=== PATIENT | male | born 1935 | race Caucasian/White ===

== ENCOUNTER 2023-04-25 14:38 | Emergency (ER) | payer MEDICARE, SELFPAY ==
[2023-04-25 14:55] VITALS: BP 152/69; PULSE 79; RESP 16; TEMP 36.7; O2SAT 97; BMI 23.5
[2023-04-25 17:04] LABS: Add Manual Diff / Slide Review NO; Basophils Absolute Auto 0 /uL (0-100); Basophils Percent Auto 0.6 % (0-2); Eosinophils Absolute Auto 100 /uL (0-450); Eosinophils Percent Auto 1.8 % (2-4); Hematocrit 40.7 % (41-53); Lymphocytes Absolute Auto 1900 /uL (1100-4500); Lymphocytes Percent Auto 25.7 % (25-40); Mean Corpuscular HGB Conc 34.3 % (30-36); Mean Corpuscular Hemoglobin 31.4 PG (26-34); Mean Corpuscular Volume 91.6 fL (80-100); Monocytes Absolute Auto 900 /uL (0-900); Monocytes Percent Auto 11.8 % (3-14); Neutrophils Absolute Auto 4400 /uL (1500-7000); Neutrophils Percent Auto 60.1 % (50-75); Platelet Count 194 X10^3/uL (150-400); Red Blood Cell Count 4.44 X10^6/uL (4.5-5.9); Red Cell Distribution Width 13.5 % (11.6-14.8); White Blood Cell Count 7.3 X10^3/uL (4.5-11.0)
[2023-04-25 17:09] LABS: Alanine Aminotransferase 29 IU/L (<50); Albumin 4.1 g/dL (3.5-5.0); Albumin Globulin Ratio 1.2 (1.0-2.8); Alkaline Phosphatase 62 U/L (38-126); Aspartate Aminotransferase 29 IU/L (17-59); BUN Creatinine Ratio 25.6 (6-22); Bilirubin Total 0.3 mg/dL (0.2-1.3); Blood Urea Nitrogen 22 mg/dL (9-20); Calcium 8.5 mg/dL (8.4-10.2); Carbon Dioxide 24 mmol/L (22-32); Chloride 103 mmol/L (98-107); Estimated Glomerular Filt Rate > 60 mL/min (>60); Globulin 3.3 g/dL (1.7-4.1); Glucose 79 mg/dL (80-110); HEMOLYSIS 28 (0-50); Lactate (Lactic Acid) 0.8 mmol/L (0.7-2.1); Potassium 3.9 mmol/L (3.4-5.1); Sodium 135 mmol/L (137-145); Total Protein 7.4 g/dL (6.3-8.2)
--- NOTE | 2023-04-25 17:35 | ED_ITS ---
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 He was airlifted to [facility] where he was sutured and admitted to observation. He said he got IV antibiotics and discharged next day. He was not discharged on any antibiotics they said that he did not need them. They have been changing t he dressings daily however last night started to notice some redness. This morning looked worse. He is able to ambulate without any significant pain. He says it looks a little bit puffy here. He is chilled in the emergency department but is afebrile and denies any sweats. Related Data Home Medications Medication Instructions Recorded Confirmed IBUPROFEN (#MOTRIN / ADVIL) 200 mg PO Q DAY PRN ##0 04/29/11 Previous Rx's Medication Instructions Recorded albuterol sulfate 90 mcg/actuation 0 puff INH PRN PRN #1 puff 02/02/17 aerosol inhaler (Ventolin HFA) beclomethasone dipropionate 80 0 INH BID #3 inhalations 02/02/17 mcg/actuation aerosol inhaler (Qvar) amoxicillin 875 mg-potassium 1 tab PO BID #20 tabs 04/25/23 clavulanate 125 mg tablet Review of Systems Review of Systems ROS Unobtainable: All systems reviewed & are unremarkable except as noted in HPI and below Exam Initial Vital Signs Initial Vital Signs: Vital Signs Temperature 98.0 F 04/25/23 14:55 Pulse Rate 79 04/25/23 14:55 Respiratory Rate 16 04/25/23 14:55 Blood Pressure 152/69 H 04/25/23 14:55 Pulse Oximetry 97 04/25/23 14:55 Oxygen Delivery Method Room Air 04/25/23 14:55 GENERAL: Alert pleasant 88-year-old male appears much younger than 88 years old CARDIOVASCULAR: peripheral pulses in tact, cap refill <2 sec RESPIRATORY: No respiratory distress, speaks in full sentences without difficulty EXTREMITIES: Normal range of motion, no clubbing or edema. Neurovascularly intact NEUROLOGICAL: Cranial nerves II through XII grossly intact. Normal gait and speech. SKIN: Left thigh laceration incision looks good. L-shaped with some hematoma minimal erythema mild fluctuation but no induration no significant swelling not significantly tender to touch. No streaking Course Orders Ordered: ED Orders 04/25/23 16:43 CBC Auto Diff [Complete Blood Count AUTO DIFF] Stat CMP [Comprehensive Metabolic Panel] Stat Lactate (Lactic Acid) Stat 04/25/23 17:30 Blood Culture Stat Discontinued Medications Amoxicillin/Clavulanate Potassium (Amoxicillin/Clav 875/125 Mg) 1 tab PO NOW ONE Stop: 04/25/23 18:01 Last Admin: 04/25/23 18:08 Dose: 1 tab Documented By: ESPINOZA Cefazolin Sodium/Dextrose (Ancef) 100 mls @ 200 mls/hr IV NOW ONE Stop: 04/25/23 18:16 Last Infusion: 04/25/23 18:37 Dose: 0 mls/hr Documented By: Admin: 04/25/23 18:05 Dose: 200 mls/hr Documented By: ESPINOZA Vital Signs Vital signs: Vital Signs - 8 hr 04/25/23 14:55 04/25/23 18:18 04/25/23 18:16 Temperature 98.0 F Pulse Rate 79 80 81 Respiratory Rate 16 16 18 Blood Pressure 152/69 H 175/84 H 175/84 H Pulse Oximetry 97 99 97 Oxygen Delivery Method Room Air Room Air MDM - Wound/Laceration Lab Data 04/25/23 16:43 04/25/23 16:43 Labs: Lab Results 04/25/23 04/25/23 04/25/23 Range/Units 16:43 16:43 16:43 WBC 7.3 (4.5-11.0) X10^3/uL RBC 4.44 L (4.5-5.9) X10^6/uL Hgb 14.0 (13.5-17.5) g/dL Hct 40.7 L (41-53) % MCV 91.6 (80-100) fL MCH 31.4 (26-34) PG MCHC 34.3 (30-36) % RDW 13.5 (11.6-14.8) % Plt Count 194 (150-400) X10^3/uL Neut % (Auto) 60.1 (50-75) % Lymph % (Auto) 25.7 (25-40) % [place] % (Auto) 11.8 (3-14) % Eos % (Auto) 1.8 L (2-4) % Baso % (Auto) 0.6 (0-2) % Neut # (Auto) 4400 (5430-5510) /uL Lymph # (Auto) 1900 (4613-0913) /uL [place] # (Auto) 900 (0-900) /uL Eos # (Auto) 100 (0-450) /uL Baso # (Auto) 0 (0-100) /uL Sodium 135 L (137-145) mmol/L Potassium 3.9 (3.4-5.1) mmol/L Chloride 103 (98-107) mmol/L Carbon Dioxide 24 (22-32) mmol/L BUN 22 H (9-20) mg/dL Creatinine 0.86 (0.66-1.25) mg/dL Estimated GFR > 60 (>60) mL/min BUN/Creatinine Ratio 25.6 H (6-22) Glucose 79 L (80-110) mg/dL Lactate 0.8 (0.7-2.1) mmol/L Calcium 8.5 (8.4-10.2) mg/dL Total Bilirubin 0.3 (0.2-1.3) mg/dL AST 29 (17-59) IU/L ALT 29 (<50) IU/L Alkaline Phosphatase 62 (38-126) U/L Total Protein 7.4 (6.3-8.2) g/dL Albumin 4.1 (3.5-5.0) g/dL Globulin 3.3 (1.7-4.1) g/dL Albumin/Globulin Ratio 1.2 (1.0-2.8) [facility] Narrative Medical decision making narrative: Patient 88-year-old male with laceration from bull presents today with increasing redness. Does not have fever no leukocytosis no evidence of severe sepsis. At this time I think mild cellulitis. So overall very soft without significant induration or actual drainage I do not think abscess at this time. Pain is not out of proportion. I see no need for imaging. I have low suspicion for necrotizing fasciitis, or deep tissue infection. He is given 1 dose of Ancef and Augmentin in the emergency department. Discharge Plan Departure Patient Disposition: Home Clinical Impression: Cellulitis Instructions: Cellulitis Activity Restrictions/Additional Instructions: *You have been diagnosed with cellulitis *What to do: At this time you do need antibiotics. Please monitor very closely for worsening redness. The antibiotics should take about 3 days *Continue to take medications as directed Augmentin androgen 875 mg twice a day for 7 days --> SENT TO [facility] *Follow up with your primary care provider in 2-3 days or call [phone] *Return to ER if you should have increasing redness pain inability to walk or any new, worsening or concerning symptoms Prescriptions: New amoxicillin-pot clavulanate 875-125 mg tablet 1 tab PO BID Qty: 20 0RF No Action IBUPROFEN (#MOTRIN / ADVIL) 200 mg PO Q DAY PRN Qty: 0 Qvar 80 MCG/PUFF aerosol 0 INH BID Qty: 3 3RF albuterol sulfate [Ventolin HFA] 90 MCG/PUFF HFA aerosol inhaler 0 puff INH PRN PRNQty: 1 0RF Referrals: Josette Quintana MD [Primary Care Provider] - Stand Alone Forms: Patient Portal/API
[2023-04-25] MEDS: CEFAZOLIN 2 GM/100 ML PREMIX 100 ML IV (18:05)
[2023-04-25] MEDS: AMOXICILLIN/CLAV 875/125 MG 1 TAB PO (18:08)
[2023-04-25 18:16] VITALS: BP 175/84; PULSE 81; RESP 18; O2SAT 97
[2023-04-25 18:18] VITALS: BP 175/84; PULSE 80; RESP 16; O2SAT 99
== END 2023-04-25 18:37 | disposition home or self-care (01) ==
PROVIDERS: Emergency Provider Emergency Medicine; Family Provider Family Medicine; PCP Family Medicine
DX: L03.116 Cellulitis of left lower limb (principal)
CPT/HCPCS: 36415; 80053; 83605; 85025; 87040; 96365; 99284; J0690

== ENCOUNTER → 2023-07-09 07:26 | Outpatient (CLI) | payer MEDICARE, SELFPAY ==
--- NOTE | 2023-07-09 | DI.MRI.S_ITS ---
PROCEDURE: MR CERVICAL SPINE WO CON INDICATIONS: NECK PAIN TECHNIQUE: Noncontrast sagittal T1 spin echo and T2 fast spin echo, sagittal STIR, foraminal oblique sagittal T2 fast spin echo, and axial gradient echo or T2 fast spin echo through the cervical spine. COMPARISON: None. FINDINGS: Image quality: Excellent. Alignment and Curvature: Straightening of normal cervical lordosis. No spondylolisthesis. Bone Marrow: Degenerative endplate changes are most pronounced at C5-C6. Spinal Cord: Visualized spinal cord has normal size and signal. No cerebellar tonsillar herniation. Paraspinous Soft Tissues: No paravertebral masses. Prevertebral soft tissues are normal in thickness. C2-C3: Disc desiccation. No central canal stenosis. Facet and uncovertebral arthropathy. No neural foraminal stenosis. C3-C4: Disc desiccation. Facet and uncovertebral arthropathy. No central canal stenosis. Mild bilateral neural foraminal stenosis. C4-C5: Disc desiccation and small posterior disc osteophyte complex. Mild central canal stenosis. Facet and uncovertebral arthropathy. Severe left and mild right neural foraminal stenosis. C5-C6: Severe disc desiccation height loss. Posterior disc osteophyte complex. Abutment of the ventral cord without cord signal abnormality. Moderate central canal stenosis. Facet and uncovertebral arthropathy. Severe bilateral neural foraminal stenosis. C6-C7: Disc desiccation height loss. Posterior disc osteophyte complex. Mild central canal stenosis. Facet and uncovertebral arthropathy. Moderate bilateral neural foraminal stenosis. C7-T1: No central canal or neural foraminal stenosis. IMPRESSION: 1. Multilevel degenerative changes of the cervical spine. This is most pronounced at C5-C6 with moderate central canal stenosis and severe bilateral neural foraminal stenosis. 2. Severe left neural foraminal stenosis at C4-C5. 3. Additional levels of mild and moderate stenosis as described above. Dictated by: Shmuel Walker M.D. on 07/09/2023 at 9:08 Approved by: Shmuel Walker M.D. on 07/09/2023 at 9:13
== END ==
PROVIDERS: Family Provider Family Medicine; PCP Family Medicine; Referring Provider Family Medicine; Visit Provider Family Medicine
DX: M47.812 Spondylosis without myelopathy or radiculopathy, cervical region (principal); M48.02 Spinal stenosis, cervical region; M54.2 Cervicalgia
CPT/HCPCS: 72141

== ENCOUNTER → 2023-10-08 13:55 | Outpatient (CLI) | payer MEDICARE, SELFPAY ==
--- NOTE | 2023-10-08 | DI.ECHO.S_ITS ---
[facility] +---------+ : : [address] [place] : : : : [id number] : : : : Phone: [phone]+ Echocardiogram Report + + :Name: ANNA BLOOM Study Date: 10/08/2023 Height: 67 in : :[facility] ReadingLocation: Weight: 150 lb : : Gender: Male BSA: 1.8 m2 : :: 1935 Age: 88 yrs BP: 162/75 mmHg: :Reason For Study: Hypertension : :Ordering Physician: RAQUEL ENRIQUE : :E Performed By: Kristine Monreal : :Referring: RAQUEL ENRIQUE E : + + Interpretation Summary The ejection fraction is estimated to be 65-70%. There is mild-moderate concentric left ventricular hypertrophy. Diastolic parameters suggest probable normal left ventricular diastolic function and normal filling pressures. The right ventricular systolic function is normal. The right ventricular systolic pressure is estimated to be at least 25 mmHg based on an estimated right atrial pressure of 3 mm Hg. There is mild aortic regurgitation. Procedure: A two-dimensional transthoracic echocardiogram with color flow and Doppler was performed. The study quality was technically good. There is no prior echocardiogram noted for this patient. The patient was in normal sinus rhythm during the exam. Left Ventricle: The left ventricle is normal in size. There is mild-moderate concentric left ventricular hypertrophy. The ejection fraction is estimated to be 65-70%. There are no obvious focal wall motion abnormalities noted but poor endocardial definition reduces the sensitivity for the detection of such. Diastolic parameters suggest probable normal left ventricular diastolic function and normal filling pressures. Right Ventricle: The right ventricle is normal size. The right ventricular systolic function is normal. Atria: Borderline left atrial enlargement. Right atrial size is normal. There is no Doppler evidence for an interatrial shunt. Mitral Valve: The mitral valve is normal. There is no mitral valve stenosis. There is trace mitral regurgitation. Aortic Valve: The aortic valve is trileaflet. There is no aortic valve stenosis. There is mild aortic regurgitation. Tricuspid Valve: The tricuspid valve is normal. There is no tricuspid stenosis. There is trace tricuspid regurgitation. The right ventricular systolic pressure is estimated to be at least 25 mmHg based on an estimated right atrial pressure of 3 mm Hg. Pulmonic Valve: The pulmonic valve leaflets are thin and pliable; valve motion is normal. There is no pulmonic valvular stenosis. There is mild pulmonic regurgitation. Great Vessels: The aortic root is normal size. The ascending aorta is normal in size. The pulmonary artery is normal size. The IVC is of normal diameter and collapses greater than 50% with a sniff. This suggests a low right atrial pressure of 3 mm Hg. Pericardium/ Pleura There is no pericardial effusion. There is no pleural effusion. MMode/2D Measurements & Calculations LVIDd: 3.4 cm LVOT diam: 1.9 cm LVIDs: 2.2 cm Ao root diam: 3.5 cm FS: 34.2 % asc Aorta Diam: 3.4 cm IVSd: 1.2 cm LVPWd: 1.4 cm LV jean. diameter/BSA (cm/m^2): 1.9 LV sys. diameter/BSA (cm/m^2): 1.2 LA A2 area: 20.5 cm2 RA long axis: 4.3 cm LA A4 area: 17.6 cm2 RA area: 9.1 cm2 LA length (vol): 5.5 cm RA vol: 16.4 ml LA vol: 56.2 ml RA : 9.2 ml/m2 LA vol index: 31.4 ml/m2 TAPSE: 1.6 cm Doppler Measurements & Calculations Ao V2 max: 513.4 cm/sec MV E max bon: 66.8 cm/sec Ao V2 mean: 185.5 cm/sec MV A max bon: 100.6 cm/sec Ao max P.0 mmHg MV E/A: 0.66 Ao mean P.7 mmHg Med Peak E' Bon: 4.6 cm/sec Ao V2 VTI: 49.8 cm E/E' med: 14.4 Lat Peak E' Bon: 5.9 cm/sec E/E' lat: 11.4 E/e' average: 12.9 MV dec time: 0.28 sec TR max bon: 232.7 cm/sec TR max P.0 mmHg PA V2 max: 106.1 cm/sec PA V2 mean: 70.2 cm/sec PA mean P.2 mmHg PA pr(Accel): 47.3 mmHg Reading Physician:ORQUIDEA
== END ==
PROVIDERS: Family Provider Family Medicine; PCP Family Medicine; Referring Provider Family Medicine; Visit Provider Family Medicine
DX: I35.1 Nonrheumatic aortic (valve) insufficiency (principal); R00.2 Palpitations; I10 Essential (primary) hypertension; R42 Dizziness and giddiness
CPT/HCPCS: 93306

== ENCOUNTER → 2025-04-04 13:33 | Outpatient (CLI) | payer MEDICARE, SELFPAY ==
[2025-04-04 14:09] LABS: Hematocrit 41.2 % (41-53); Hemoglobin 14.1 g/dL (13.5-17.5)
[2025-04-04 15:31] LABS: 585 Gram Check PASS; Patient Weight <110 lb NO; Prediastolic 72 mmHg; Presystolic 142 mmHg; Pulse 62 bpm; Temperature 98.1; Therapeutic Phleb Consent Chec Consent signed @ reg; Zero Check Sebra Scale PASS
[2025-04-04 15:32] LABS: Amount Collected in g 574 g; Amount Collected mL calc 498 mL; Dizziness N; Postdiastolic BP 67 mmHg; Postsystolic BP 125 mmHg; Site of phlebotomy Right antecubital; Swelling N; Therapeutic Phleb Start Time 1512; Therapeutic Phleb Stop Time 1520
== END ==
LOC: LAB 13:37
PROVIDERS: Family Provider Family Medicine; PCP Family Medicine
DX: E83.119 Hemochromatosis, unspecified (principal)
CPT/HCPCS: 85014; 85018; 99195